=== PATIENT | female | born 1985 | race African-American/Black ===

== ENCOUNTER 2023-01-06 11:01 | Emergency (ER) | payer OTHER, SELFPAY ==
--- NOTE | ~2023-01-06 | US_ITS ---
EXAMINATION: Ultrasound OB Limited CLINICAL INFORMATION: Patient 19 weeks . Vaginal bleeding. COMPARISON: None. TECHNIQUE: Transabdominal Limited OB ultrasound FINDINGS: There is a single viable intrauterine fetus in breech position. heart rate is 153 bpm. movement is seen. measurements: Head circumference 11.2 cm suggesting gestational age 15 weeks 3 days, femur length 1.8 cm suggesting gestational age 15 weeks 2 days, abdominal circumference 9.9 cm suggesting gestational age 16 weeks 0 days. From today's measurements gestational age would be estimated at 15 weeks 4 days. There is anterior fundal placenta. Cervix not well visualized. Maternal pelvis not well visualized. US/US OB limited IMPRESSION: Single viable intrauterine fetus. From today's measurements gestational age is estimated at 15 weeks 4 days. Anterior fundal placenta.
--- NOTE | 2023-01-06 11:23 | ED_ITS ---
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 Patient is approximately 5 months . She is receiving her care [facility]. She is on a vitamin. She has had spotting over the last couple of weeks. Today, she developed sharp lower pelvic pain associated with a gush of blood. She has had no fevers or chills. No nausea vomiting. She is concerned she is having a miscarriage. She describes her pain as ijbt-rr-ruvessig nature. There is no clear relieving or exacerbating feature s. The pain does not radiate. There is no diarrhea or constipation. Related Data Allergies Allergy/AdvReac Type Severity Reaction Status Date / Time caramel Allergy Unknown Verified 01/06/23 11:27 carrot Allergy Unknown Verified 01/06/23 11:27 codeine Allergy Unknown Verified 01/06/23 11:27 [facility] Social History Social History Advance Directives: No Advance Directives Information Provided: Yes Physical Exam ED Vital Signs: Vital Signs - 24 hr 01/06/23 11:24 Temperature 98.8 F Pulse Rate 105 H Respiratory Rate 22 H Blood Pressure 142/86 H Pulse Oximetry 97 Oxygen Delivery Method Room Air BMI result Body Mass Index 36.5 GEN: Well developed, no acute distress, alert, oriented HEENT: Normocephalic, atraumatic, normal external ears, nose appears normal, no oropharyngeal edema or exudates Eyes: Normal to appearance Neck: Supple, no lymphadenopathy Respiratory: Talks in complete sentences, no respiratory distress, clear to auscultation bilaterally Cardiovascular: Regular rate and rhythm, no murmurs rubs or gallops Abdomen: Gravid abdomen, no tenderness, rebound or guarding Back: No CVA tenderness Extremities: No clubbing cyanosis or edema Neurologic: No focal neurologic deficits, cranial nerves 2-12 intact, strength is 5/5 bilaterally Skin: No rash Course Course Course Narrative: This is a rapid medical exam. Deferred additional HPI, ROS, PE to primary provider. 37 yo female with history of HTN here with vaginal bleeding since last evening, lower abdominal pain, back pain. Patient is currently 5 months (19 weeks). Recently moved here and just established a OB at [facility]. Has had US to confirm IUP. [id number] Will need labs, UA, US, FHR VSS unable to get FHR in triage. Called and spoke to charge nurse (Jeni). Aware patient needs immediate bedding d/t concern for being unable to obtain FHR Reevaluation(s) Reevaluation #1: Patient apparently left the emergency department following OB ultrasound. Per review of the official ultrasound, no report available as of yet, heart rate was noted, positive movements were noted. Placenta was noted to be fundal. We have attempted to contact the patient to return for full report. She is Rh positive and does not require RhoGAM. Time: 14:11 Medical Decision Making Medical Decision Making [facility] Narrative: 37-year-old female presents with sharp abdominal/pelvic pain, vaginal bleeding. She has had 2 miscarriages in the past. Abdomen is soft and nontender. Ultrasound revealed movements as well as a heart rate of approximately 164 beats per minute. Differential diagnosis could include placenta previa, placental abruption, subchorionic hemorrhage. She does have care at [facility]. Will obtain a 2nd trimester ultrasound. Will contact OBGYN following workup. Differential Diagnosis Differential Diagnoses: The differential diagnosis associated with the presentation includes (See above) Admission/Observation Consideration of admission/observation: Escalation of care including admission/observation considered Consult Healthcare Provider Management of the patient was discussed with: Managing Jeweler (OBGYN) Lab Data [facility] Lab Attestation statement: I reviewed the patient's lab results. 01/06/23 11:40 01/06/23 11:40 Labs: Lab Results 01/06/23 01/06/23 01/06/23 Range/Units 11:40 11:40 12:57 WBC 9.3 (4.8-10.8) X10*3/uL RBC 4.12 L (4.20-5.50) X10*6/uL Hgb 11.8 L (12.0-16.0) g/dl Hct 34.8 L (37.0-47.0) % MCV 84.5 (80.0-98.0) fL MCH 28.6 (27.0-33.0) pg MCHC 33.9 (31.0-35.0) g/dl RDW 13.2 (11.0-16.0) % Plt Count 301 (160-400) X10*3/uL MPV 9.3 L (9.4-12.3) fL Immature Gran % (Auto) 1.0 H (0.0-0.4) % Neut % (Auto) 57.6 (45-73) % Lymph % (Auto) 30.3 (20-40) % [place] % (Auto) 7.7 (2-11) % Eos % (Auto) 2.9 (0-4) % Baso % (Auto) 0.5 (0-2) % Lymph # (Auto) 2.8 (1.2-4.9) X10*3/uL [place] # (Auto) 0.7 (0.1-1.2) X10*3/uL Eos # (Auto) 0.3 (0.0-0.4) X10*3/uL Baso # (Auto) 0.1 (0.0-0.2) X10*3/uL Abs Immat Gran (auto) 0.09 H (0.00-0.03) X10*3/uL Absolute Neuts (auto) 5.3 (2.0-8.3) x10*3/uL Absolute Nucleated RBC 0.000 (0.0-0.012) X10*3/uL Nucleated RBC % (auto) 0.0 (0.0-0.2) /100WBC Sodium 136 (135-145) mmol/L Potassium 3.9 (3.3-5.1) mmol/L Chloride 106 (96-108) mmol/L Carbon Dioxide 20 L (22-29) mmol/L Anion Gap 14 (12-20) BUN 9 (9-16) mg/dL Creatinine 0.66 (0.5-1.4) mg/dL Estim Creat Clear Calc 153.8 Estimated GFR > 60 Random Glucose 96 (60-115) mg/dL Calcium 9.4 (8.4-10.2) mg/dL Total Bilirubin 0.9 (0.0-1.0) mg/dL Direct Bilirubin 0.2 (0.0-0.5) mg/dL AST 22 (5-31) U/L ALT 23 (0-31) U/L Alkaline Phosphatase 41 (39-117) U/L Total Protein 7.4 (6.5-8.0) g/dL Albumin 4.0 (3.5-5.0) g/dL Beta HCG, Quant 06349 mIU/mL Blood Type B Positive Independent Interpretation I performed an independent interpretation of an: Ultrasound Radiology Impression Discussion of test interpretation with radiology: I have reviewed the radiologist's reading. ( US/US OB limited IMPRESSION: Single viable intrauterine fetus. From today's measurements gestational age is estimated at 15 weeks 4 days. Anterior fundal placenta. Dictated By:Marjorie Villalobosigned By:<Electronically signed by Marjorie Leyva MD in OV>01/06/23 1242) Prescription Management I considered prescription management with: Pain Medication Discharge Plan Discharge Clinical Impression: Threatened Patient Disposition: Elopement Interventions: ED Discharge Assessment Last Done: 01/06/23 13:52 Discharge Date/Time: 01/06/23 13:52
[2023-01-06 11:24] VITALS: BP 142/86; PULSE 105; RESP 22; TEMP 37.1; O2SAT 97; BMI 36.5
[2023-01-06 11:46] LABS: MANUAL DIFF FLAG NO
[2023-01-06 11:48] LABS: Basophils Absolute Auto 0.1 X10*3/uL (0.0-0.2); Basophils Percent Auto 0.5 % (0-2); Eosinophils Absolute Auto 0.3 X10*3/uL (0.0-0.4); Eosinophils Percent Auto 2.9 % (0-4); Hematocrit 34.8 % (37.0-47.0); Hemoglobin 11.8 g/dl (12.0-16.0); Imm Gran Abs Auto 0.09 X10*3/uL (0.00-0.03); Lymphocytes Absolute Auto 2.8 X10*3/uL (1.2-4.9); Lymphocytes Percent Auto 30.3 % (20-40); Mean Corpuscular HGB Conc 33.9 g/dl (31.0-35.0); Mean Corpuscular Hemoglobin 28.6 pg (27.0-33.0); Mean Corpuscular Volume 84.5 fL (80.0-98.0); Mean Platelet Volume 9.3 fL (9.4-12.3); Monocytes Absolute Auto 0.7 X10*3/uL (0.1-1.2); Monocytes Percent Auto 7.7 % (2-11); Neutrophils Absolute Auto 5.3 x10*3/uL (2.0-8.3); Neutrophils Percent Auto 57.6 % (45-73); Platelet Count 301 X10*3/uL (160-400); Red Blood Count 4.12 X10*6/uL (4.20-5.50); Red Cell Distribution Width 13.2 % (11.0-16.0); White Blood Count 9.3 X10*3/uL (4.8-10.8)
--- NOTE | 2023-01-06 12:00 | PC.NURSE ---
Hr 164 on us by md. + movement.
[2023-01-06 12:08] LABS: Alanine Aminotransferase 23 U/L (0-31); Alkaline Phosphatase 41 U/L (39-117); Anion Gap 14 (12-20); Aspartate Amino Transferase 22 U/L (5-31); Bilirubin Direct 0.2 mg/dL (0.0-0.5); Bilirubin Total 0.9 mg/dL (0.0-1.0); Blood Urea Nitrogen 9 mg/dL (9-16); Calcium 9.4 mg/dL (8.4-10.2); Carbon Dioxide 20 mmol/L (22-29); Chloride 106 mmol/L (96-108); Creatinine Clr Calc Pharmacy 153.8; Estimated Glomerular Filt Rate > 60; Glucose Random 96 mg/dL (60-115); Potassium 3.9 mmol/L (3.3-5.1); Sodium 136 mmol/L (135-145); Total Protein 7.4 g/dL (6.5-8.0)
[2023-01-06 12:37] LABS: HCG Quantitative 21261 mIU/mL
== END 2023-01-06 13:52 | disposition left against medical advice (07) ==
PROVIDERS: Nurse Practitioner Family; Emergency Provider Emergency Medicine
DX: O20.0 Threatened abortion (principal); Z3A.15 15 weeks gestation of pregnancy
CPT/HCPCS: 36415; 76815; 80048; 80076; 84702; 85025; 86900; 86901; 99284

== ENCOUNTER 2023-05-19 09:31 | Emergency (ER) | payer OTHER, SELFPAY ==
[2023-05-19 10:21] LABS: IDNOW Serial# 6674DD1D; Strep A Nucleic Acid Positive (Negative)
--- NOTE | 2023-05-19 10:37 | ED.GENADULT ---
HPI - General Adult General Chief complaint: Upper Respiratory Symptoms Stated complaint: Fever/Cough Time Seen by Provider: 05/19/23 10:33 Source: patient Mode of arrival: ambulatory Limitations: no limitations History of Present Illness HPI narrative: Patient is a 38 year old assigned female at with no reported medical history presenting to the emergency department today with a cough and feeling generally unwell. Patient states that over the last week she has had a cough and felt generally unwell. Patient denies any dizziness, lightheadedness, abdominal pain, nausea, vomiting, fever, chills, blurry vision, double vision, loss of vision, chest pain, difficulty breathing, shortness of breath, back pain, night sweats, pain with urination, increased urinary frequency, increased urinary urgency, blood in her urine or stool, syncope or a near syncopal episode, recent trauma or falls, bowel incontinence, bladder incontinence, bowel retention, bladder retention, or any other complaints at this time. Onset (ago): week(s) (1) Severity: mild Severity scale (1-10): 3 Relieving factors: none Exacerbating factors: none Associated symptoms: cough Treatments prior to arrival: none Related Data Previous Rx's Medication Instructions Recorded penicillin V potassium 500 mg 500 mg PO BID 10 days #20 tabs 05/19/23 tablet Allergies Allergy/AdvReac Type Severity Reaction Status Date / Time caramel Allergy Unknown Verified 01/06/23 11:27 carrot Allergy Unknown Verified 01/06/23 11:27 codeine Allergy Unknown Verified 01/06/23 11:27 Review of Systems Constitutional: Constitutional: Reports no additional constitutional complaints, Denies chills, Denies fever(s) and Denies night sweats Eyes: Eyes: Reports no additional eye complaints, Denies blurry vision, Denies change in vision, Denies diplopia, Denies eye discharge, Denies loss of vision and Denies eye pain ENT: Denies dizziness Cardiovascular: Cardiovascular: Reports no additional cardiovascular complaints, Denies chest pain, Denies lightheadedness, Denies Loss of Consciousness and Denies dyspnea Respiratory: Respiratory: Reports no additional respiratory complaints, Reports cough and Denies dyspnea Gastrointestinal: Gastrointestinal: Reports no additional gastrointestinal complaints, Denies abdominal pain, Denies melena, Denies hematochezia, Denies change in bowel habits and Denies change in stool character Genitourinary: Genitourinary: Denies hematuria, Denies urinary frequency, Denies dysuria, Denies urinary incontinence, Denies urinary hesitancy and Denies urinary urgency Musculoskeletal: Musculoskeletal: Reports no additional musculoskeletal complaints, Denies numbness and Denies tingling Neurologic: Denies dizziness, Denies loss of vision, Denies numbness and Denies tingling Psychiatric: Psychiatric: Reports no additional psychiatric complaints Endocrine: Endocrine: Reports no additional endocrine complaints Hematologic/Lymphatic: Hematologic/Lymphatic: Reports no additional hematologic/lymphatic complaints Allergic/Immunologic: Allergic/Immunologic: Reports no additional allergic/immunologic complaints [facility] Past Medical History Attestation statement: The following information was validated with the patient. Source: old records reviewed and nursing notes reviewed Social History Social History Advance Directives: No Physical Exam ED Vital Signs: Vital Signs - 24 hr 05/19/23 11:30 Temperature 96.9 F Pulse Rate 100 Respiratory Rate 16 Blood Pressure 138/63 Pulse Oximetry 97 Oxygen Delivery Method Room Air BMI result Body Mass Index 40.1 Const General: cooperative, no acute distress, alert and awake Nutritional Appearance: well nourished Orientation/consciousness: patient oriented x3 Limitations: no limitations HENMT Head: Yes normal to inspection and Yes atraumatic Ears: hearing grossly normal bilaterally and external ears normal General nose exam: Normal external nose present, no nasal discharge noted and no epistaxis Face and sinus: Yes normal facial exam, No abrasion and No laceration Mouth: Normal oral and palatal mucosa present, no drooling and no muffled voice Throat: Yes abnormal tonsil (bilateral erythema with exudates) Eyes General: appearance normal, both eyes and all related structures Periorbital: periorbital findings normal Eyelids: Yes eyelids normal Conjunctivae: conjunctivae normal Pupils: Equal, round and reactive pupils present EOM: EOMs intact bilaterally Neck Neck: Yes normal visual inspection, Yes full ROM and Yes no lymphadenopathy Chest Chest palpation & inspection: normal inspection of the chest Resp Effort & Inspection: normal respiratory effort and able to speak in complete sentences Auscultation: clear to auscultation bilaterally Cardio Rate: regular rate Rhythm: regular rhythm GI Inspection: Yes normal to inspection Neuro General: patient oriented x3 and moves all extremities Cranial nerves: Yes Equal, round and reactive pupils present Cognition (Neuro): normal cognition Motor exam (neuro): 5/5 motor strength present throughout Sensory Exam: Normal double simultaneous stimulation for sensation Coordination: [id number] test normal Extrem General: Yes normal to inspection, Yes full ROM and Yes capillary refill normal Psych Appearance: grossly normal Mental Status: mental status grossly normal Affect: normal affect Attitude: cooperative Thought process: Normal thought process present Thought content: Normal thought content present Insight: Good insight present (Psych) Medical Decision Making Medical Decision Making [facility] Narrative: Patient is a 38 year old assigned female at with no reported medical history presenting to the emergency department today with a cough and feeling generally unwell. Patient's physical exam was as noted in the physical exam portion of this note. Patient's COVID/RSV/Influenza swab was positive for RSV. Patient's strep swab was positive. I explained my physical exam findings as well as all test results to the patient. I answered all questions asked by the patient. I stressed the importance of the patient taking her medication as prescribed. I stressed the importance of the patient following up with her primary care provider. I stressed the importance of the patient returning to the emergency department immediately if her symptoms were to worsen or if she were to develop any dizziness, shortness of breath, difficulty breathing, chest pain, blurry vision, loss of vision, nausea, vomiting, abdominal pain, fever, chills, back pain, or any other complaints. Patient verbalized agreement and understanding with this treatment plan and discharge. Differential Diagnosis Differential Diagnoses: The differential diagnosis associated with the presentation includes COVID-19 Influenza RSV Strep pharyngitis Lab Data [facility] Lab Attestation statement: I reviewed the patient's lab results. My interpretation of these results are in the [facility] rationale portion of this note. Labs: Lab Results 05/19/23 Range/Units 10:04 Influenza Type A (PCR) NEGATIVE (Negative) Influenza Type B (PCR) NEGATIVE (Negative) RSV RNA Qual (PCR) POSITIVE A (Negative) SARS-CoV-2 RNA (RT-PCR) NEGATIVE (Negative) S. pyogenes GrpA PAOLO Positive A (Negative) Prescription Management I considered prescription management with: Antibiotic (patient prescribed an antibiotic for strep pharyngitis) Discharge Plan Discharge Clinical Impression: Strep pharyngitis, RSV (respiratory syncytial virus infection) Patient Disposition: Home, Self-Care Instructions: Strep Throat (DC), Respiratory Syncytial Virus (ED) Additional Instructions: Follow up with your primary care provider. Return to the emergency department immediately if your symptoms worsen or if you develop any dizziness, shortness of breath, difficulty breathing, chest pain, blurry vision, loss of vision, nausea, vomiting, abdominal pain, fever, chills, back pain, or any other complaints. Prescriptions: New penicillin V potassium 500 mg tablet 500 mg PO BID 10 Days Qty: 20 0RF Referrals: [facility] [place] Family Medicine [Provider Group] (Call to establish and follow up with a primary care provider. If you already have a primary care provider, please follow up with them.) [facility] Primary Care, [place] [Provider Group] (Call to establish and follow up with a primary care provider. If you already have a primary care provider, please follow up with them.) [facility] (Call to establish and follow up with a primary care provider. If you already have a primary care provider, please follow up with them.) [facility] [Physician] - (Call to establish and follow up with a primary care provider. If you already have a primary care provider, please follow up with them.) Stand Alone Forms: Work/School Release Interventions: ED Discharge Assessment Last Done: 05/19/23 11:47 Discharge Date/Time: 05/19/23 11:47 Print Language: Swedish
[2023-05-19 10:57] LABS: Influenza A PCR NEGATIVE (Negative); Influenza B PCR NEGATIVE (Negative); Resp Syncy Virus RNA Qual PCR POSITIVE (Negative); SARS COV2 PCR INHOUSE NEGATIVE (Negative)
[2023-05-19 11:30] VITALS: BP 138/63; PULSE 100; RESP 16; TEMP 36.1; O2SAT 97; BMI 40.1
== END 2023-05-19 11:47 | disposition home or self-care (01) ==
PROVIDERS: Physician Assistant Medical; Emergency Provider Emergency Medicine
DX: J02.0 Streptococcal pharyngitis (principal); R05.9 Cough, unspecified; R50.9 Fever, unspecified; Z20.822 Contact with and (suspected) exposure to COVID-19; Z20.828 Contact with and (suspected) exposure to other viral communicable diseases; Z79.899 Other long term (current) drug therapy
CPT/HCPCS: 0241U; 87651; 99283

== ENCOUNTER 2023-12-03 09:11 | Emergency (ER) | payer OTHER, SELFPAY ==
[2023-12-03 09:23] VITALS: BP 156/92; PULSE 110; RESP 20; TEMP 37.7; O2SAT 97; BMI 37.2
[2023-12-03 10:08] LABS: IDNOW Serial# 08D9AD1C; Strep A Nucleic Acid Negative (Negative)
[2023-12-03 10:44] LABS: Influenza A PCR NEGATIVE (Negative); Influenza B PCR POSITIVE (Negative); Resp Syncy Virus RNA Qual PCR NEGATIVE (Negative); SARS COV2 PCR INHOUSE NEGATIVE (Negative)
--- NOTE | 2023-12-03 11:18 | ED_ITS ---
HPI - General Adult General Chief complaint: Fever Stated complaint: fever, vomiting Time Seen by Provider: 12/03/23 11:08 Source: patient, RN notes reviewed and old records reviewed Mode of arrival: ambulatory Limitations: no limitations History of Present Illness HPI narrative: 38 year old female with no significant pmhx presents to the ED for evaluation of subjective fevers, body aches, dry cough, and posttussive emesis that began this morning. One of her children at home has strep throat and the other two are ill with similar symptoms. No other sick contacts. Denies sore throat, ear pain, chest pain, sob, palpitations, abdominal pain, flank pain, dysuria, or hematuria. Related Data Previous Rx's ?Medication ?Instructions ?Recorded penicillin V potassium 500 mg 500 mg PO BID 10 days #20 tabs 05/19/23 tablet ibuprofen 200 mg capsule (Motrin 600 mg (3 x 200 mg) PO Q4-6H PRN 12/03/23 IB) fever or pain #30 caps oseltamivir 75 mg capsule (Tamiflu) 75 mg PO BID 5 days #10 caps 12/03/23 Allergies Allergy/AdvReac Type Severity Reaction Status Date / Time caramel Allergy Unknown Verified 12/03/23 09:25 carrot Allergy Unknown Verified 12/03/23 09:25 codeine Allergy Unknown Verified 12/03/23 09:25 Review of Systems Review of Systems: Constitutional: No fever, chills, fatigue, night sweats, weight changes ENT/Mouth: No ear pain, hearing loss, nasal congestion, sinus pain, rhinorrhea, sore throat Eyes: No eye pain, swelling, redness, vision changes, discharge Cardio: No chest pain, palpitations, GUNTER, orthopnea, peripheral edema Pulm: No SOB, sputum, wheezing, dyspnea, hemoptysis, +cough GI: No nausea, vomiting, hematemesis, abdominal pain, diarrhea, constipation, hematochezia, melena : No irregular bleeding, dysuria, frequency, urgency, hesitancy, hematuria, flank pain, urinary flow changes, urinary incontinence or retention MSK: No back pain, neck pain, joint pain, +myalgias Skin: No lesions, rashes Neuro: No weakness, numbness, paresthesias, LOC, dizziness, headache Psych: No anxiety/panic, depression, SI/HI, AH/VH All other systems reviewed and are negative. [facility] Past Medical History Attestation statement: The following information was validated with the patient. Source: old records reviewed and nursing notes reviewed Social History Social History Advance Directives: No Advance Directives Information Provided: No Physical Exam ED Vital Signs: Vital Signs - 24 hr 12/03/23 09:23 Temperature 99.9 F Pulse Rate 110 H Respiratory Rate 20 Blood Pressure 156/92 H Pulse Oximetry 97 Oxygen Delivery Method Room Air BMI result Body Mass Index 37.2 Patient hypertensive, tachy Const General: cooperative, healthy appearing, comfortable and no acute distress Nutritional Appearance: obese Orientation/consciousness: patient oriented x3 Limitations: no limitations HENMT Head: Yes normal to inspection, Yes No palpable skull fracture present, Yes normocephalic and Yes atraumatic Ears: hearing grossly normal bilaterally, external ears normal, TM's normal bilaterally, EAC's normal, mastoids normal and no periauricular adenopathy Eyes General: appearance normal, both eyes and all related structures Conjunctivae: conjunctivae normal Sclerae: sclerae normal Pupils: Equal, round and reactive pupils present Neck Neck: Yes normal visual inspection, Yes full ROM, Yes no lymphadenopathy and Yes no meningeal signs Resp Effort & Inspection: normal respiratory effort and able to speak in complete sentences Auscultation: clear to auscultation bilaterally Cardio Rate: regular rate Rhythm: regular rhythm GI Inspection: Yes normal to inspection and Yes obesity Palpation (GI): Soft to palpation and nontender General: Yes no CVA tenderness Back/Spine/Pelvis Back: no CVA tenderness Skin General skin exam: no rashes or lesions noted Neuro General: patient oriented x3 and no meningeal signs Cranial nerves: Yes Equal, round and reactive pupils present Extrem General: Yes normal to inspection, Yes capillary refill normal and Yes no calf tenderness Course Course Course Narrative: 1118-- Patient has tested positive for influenza b. after discussed, tamiflu s ent to pharmacy for treatment. Patient has remained stable throughout ED visit today however is refusing repeat vitals on discharge. Discussed worrisome signs and symptoms and when to return to the ED. All questions answered at this time. Patient is agreeable with disposition and stable for discharge. Medical Decision Making Medical Decision Making [facility] Narrative: 38 year old female with no significant pmhx presents to the ED for evaluation of subjective fevers, body aches, dry cough, and posttussive emesis that began this morning. patient hypertensive and tachy. low grade fever of 99.9F > refusing repeat vitals. she is nontoxic appearing and in NAD. no rashes. lungs are cta b/l. rrr. abd obese, nd/nt, no rebound or guarding, normoactive bs x4. no calf tenderness b/l. Differential diagnosis includes viral syndrome, bronchitis, gastroenteritis. lower suspicion for strep throat, mono, sales representative trainee, retropharyngeal abscess, pneumonia, dvt. plan for viral swabs and re-evaluation. Differential Diagnosis Differential Diagnoses: The differential diagnosis associated with the presentation includes as above. Admission/Observation not indicated Lab Data [facility] Lab Attestation statement: I reviewed the patient's lab results. as above. Labs: Lab Results 12/03/23 Range/Units 09:43 Influenza Type A (PCR) NEGATIVE (Negative) Influenza Type B (PCR) POSITIVE A (Negative) RSV RNA Qual (PCR) NEGATIVE (Negative) SARS-CoV-2 RNA (RT-PCR) NEGATIVE (Negative) S. pyogenes GrpA PAOLO Negative (Negative) External Record Review External record reviewed: Inpatient record Prescription Management I considered prescription management with: Pain Medication and Antiviral (tamiflu) Social Determinants Patient?s care significantly limited by Social Determinants of Health including: Low income and Other Social Determinant of Health Critical Care Time Critical Care Time Critical Care Time: No Discharge Plan Discharge Clinical Impression: Influenza B Patient Disposition: Elopement Instructions: Influenza (ED), Flu Shot (Vaccine) for Adults (ED), Droplet Precautions (ED) Additional Instructions: You tested negative for strep throat, covid and rsv. You tested positive for the flu. After discussion, tamiflu has been sent to your pharmacy for you to take over the next 5 days. You may take [id number] cough medicine such is Robitussin. Alter ibuprofen and Tylenol for fevers and body aches. You may also purchase [id number] Chloraseptic spray tp spray at the back of the throat for throat pain. Follow-up with PCP. If symptoms persist or worsen please return to the emergency department. The case of an emergency call 911. Prescriptions: New oseltamivir [Tamiflu] 75 mg capsule 75 mg PO BID 5 Days Qty: 10 0RF ibuprofen [Motrin IB] 200 mg capsule 600 mg PO Q4-6H PRN (Reason: fever or pain) Qty: 30 0RF No Action penicillin V potassium 500 mg tablet 500 mg PO BID 10 Days Qty: 20 0RF Discharge Date/Time: 12/03/23 11:45 Print Language: Greenlandic
--- NOTE | 2023-12-03 11:43 | PC.NURSE ---
Pt eval by ALONDRA in triage, Influenza B+, cleared for dc with scripts, pt refused VS, refused meds for self and children, left without discharged paperwork.
== END 2023-12-03 11:45 | disposition left against medical advice (07) ==
PROVIDERS: Emergency Provider Emergency Medicine
DX: J10.1 Influenza due to other identified influenza virus with other respiratory manifestations (principal); R50.9 Fever, unspecified; M79.10 Myalgia, unspecified site; R05.9 Cough, unspecified; R11.2 Nausea with vomiting, unspecified; Z11.52 Encounter for screening for COVID-19; Z20.822 Contact with and (suspected) exposure to COVID-19
CPT/HCPCS: 0241U; 87651; 99282; 99283

== ENCOUNTER 2023-12-05 18:46 | Emergency (ER) | payer OTHER, SELFPAY ==
[2023-12-05 19:00] VITALS: BP 141/93; PULSE 120; RESP 18; TEMP 36.8; O2SAT 99; BMI 37.2
--- NOTE | 2023-12-05 19:00 | ED_ITS ---
HPI - General Adult General Chief complaint: Urogenital-Female Stated complaint: back pain, high blood pressure, vision disturbance Time Seen by Provider: 12/05/23 20:50 Source: patient Mode of arrival: ambulatory Limitations: no limitations History of Present Illness HPI narrative: 38-year-old female with a history of hypertension who presents emergency department for evaluation of fever, chills, nonproductive cough, nausea, vomiting and right lower back pain. Patient states she got sick 5 days prior. She was seen here in the emergency department on 12/03/2023 and diagnosed with influenza B. She was started on Tamiflu, Tylenol and ibuprofen. She states she continues to have a nonproductive cough. She now has developed right lower back pain. She states the pain is a constant, sharp pain which is worse with movement. She denied chest pain, shortness of breath or dyspnea on exertion. She states she has been taking Tylenol and ibuprofen but despite taking these medication she still having 10/10 pain. She states she occasionally gets a change in her vision especially when the pain is severe. She states that her vision is ?flickering ?with occasional white flex crossing her vision. Related Data Previous Rx's ?Medication ?Instructions ?Recorded penicillin V potassium 500 mg 500 mg PO BID 10 days #20 tabs 05/19/23 tablet ibuprofen 200 mg capsule (Motrin 600 mg (3 x 200 mg) PO Q4-6H PRN 12/03/23 IB) fever or pain #30 caps oseltamivir 75 mg capsule (Tamiflu) 75 mg PO BID 5 days #10 caps 12/03/23 acetaminophen 500 mg tablet 500 mg PO Q6H PRN fever or pain 12/05/23 (Tylenol Extra Strength) #30 tabs ibuprofen 400 mg tablet 400 mg PO TID PRN fever or pain 12/05/23 #30 tabs oxycodone 5 mg tablet 5 mg PO Q6H PRN pain #10 tabs 12/05/23 Allergies Allergy/AdvReac Type Severity Reaction Status Date / Time caramel Allergy Unknown Verified 12/05/23 19:03 carrot Allergy Unknown Verified 12/05/23 19:03 codeine Allergy Unknown Verified 12/05/23 19:03 Review of Systems Review of Systems: Yes all other systems are reviewed and are negative PMFSH Past Medical History PMFSH Narrative: Social history: The patient states she is living in a usp with her 3 children. She does smoke cigarettes. She denies alcohol use. She does smoke marijuana. Social History Social History Advance Directives: No Advance Directives Information Provided: No Physical Exam ED Vital Signs: Vital Signs - 24 hr 12/05/23 19:00 Temperature 98.2 F Pulse Rate 120 H Respiratory Rate 18 Blood Pressure 141/93 H Pulse Oximetry 99 Oxygen Delivery Method Room Air BMI result Body Mass Index 37.2 Vital signs revealed an elevated blood pressure of 141/93 and an elevated heart rate of 120. Exam: General: Awake, alert in no distress, elevated BMI of 37.3 with a weight of 111 kg Head: Normocephalic, atraumatic EENT: PERRL, Lids normal, sclera normal, conjunctiva normal, nose normal , ears normal, throat without erythema or exudates Neck: Supple, no adenopathy Lung: breath sounds symmetric, no wheezing, rales or rhonchi Chest: symmetric movement, nontender Heart: regular rate and rhythm, normal S1, S2 no murmurs or rubs Abdomen: soft, non-tender, nondistended, normal bowel sounds Back: Patient has no vertebral tenderness but does have significant tenderness palpation of the paraspinal muscles in the lumbar sacral area, there has no spasm these muscles. When the patient stands and tries to been 4 she has increa sed pain on her right side. Extremities: no deformities, moves all extremities symmetrically Neuro: Awake, alert, oriented, normal speech, cranial nerves intact, moves all extremities symmetrically Psych: Pleasant, cooperative Course Course Course Narrative: This is an RME: Additional HPI, ROS, PE not included below will be deferred to primary provider. 38 yo f presents with right sided back pain for one day. Reports dark urine and frequency. Reports flickering spots in vision. Also concerned with high blood pressure readings at home. Medical Decision Making Medical Decision Making MDM Narrative: 38-year-old female with a history of hypertension who presents emergency department for evaluation of 5 days of viral illness, she tested positive for influenza B on 12/03/2023. The patient continues to have fever , chills, nausea, vomiting and a nonproductive cough. She states she has developed right lower back pain over the last several days which is not relieved by Tylenol and ibuprofen. Vital signs did reveal an elevated blood pressure and elevated heart rate. Physical examination did reveal significant tenderness palpation of her paraspinal muscles in the lumbar sacral area which are worse with movement and with bending. Differential diagnosis: ?Includes but is not limited to pneumonia, pyelonephritis, urinary tract infection, pulmonary embolism, musculoskeletal strain/sprain Following evaluation was ordered: Urinalysis Patient was initially treated with the following: Toradol 60 mg IM Course: 22:12 My interpretation patient's laboratory evaluation as follows: Urinalysis was negative. Patient did have a positive influenza B on 12/03/2023. Patient does have significant tenderness palpation of her right lumbar sacral paraspinal muscles, this is worse with movement with bending. At this time I suspect the patient has musculoskeletal strain possibly secondary to her cough. Patient's elevated heart rate and elevated blood pressure most likely related to her pain. Patient was treated with Toradol 60 mg IM. She was given prescriptions for Tylenol and ibuprofen and for pain not relieved by these medications she was prescribed oxycodone. She was given printed and verbal instructions discharged home. Admission/Observation Consideration of admission/observation: Escalation of care including admission/observation considered Lab Data MDM Lab Attestation statement: I reviewed the patient's lab results. Labs: Lab Results 12/05/23 Range/Units 20:37 Urine Color Yellow Urine Appearance Hazy Urine pH 5.0 (5.0-9.0) Ur Specific [place] 1.015 (1.005-1.025) Urine Protein Trace (Neg-Trace) mg/dL Urine Glucose (UA) Negative (Negative) mg/dL Urine Ketones Negative (Negative) mg/dL Urine Blood Negative (Negative) Urine Nitrite Negative (Negative) Ur Leukocyte Esterase Negative (Negative) External Record Review External record reviewed: Other ([place] patient prescription monitoring program-no opiates prescribed over the search range) Discharge Plan Discharge Clinical Impression: Left lumbar pain, Influenza B Patient Disposition: Home, Self-Care Instructions: Acute Low Back Pain (ED) Additional Instructions: Your urine test was negative, I do not think that your back pain is due to a urine infection at this time. On your exam you are very tender when I pushed on your lower back muscles suggesting that your pain is caused by a back sprain or strain. Take [id number] pills, 1 pills every 6 hours as needed for pain. Take Tylenol (acetaminophen) 500 mg pills, 2 pills every 6 hours as needed for pain. For pain not relieved by ibuprofen or Tylenol take oxycodone 5 mg pills, 1 pill every 4 hours as needed for pain. Do not drive or work while taking this medication since they can cause sleepiness. Oxycodone is a narcotic medication that can be addicting. If you are concerned about addiction you can ask the pharmacist for less pills or do not get this prescription filled. Follow-up with your doctor in 2 days. Please return to the emergency department if your symptoms get worse or if you develop any symptoms that are concerning to you. Prescriptions: New acetaminophen [Tylenol Extra Strength] 500 mg tablet 500 mg PO Q6H PRN (Reason: fever or pain) Qty: 30 0RF ibuprofen 400 mg tablet 400 mg PO TID PRN (Reason: fever or pain) Qty: 30 0RF oxycodone 5 mg tablet 5 mg PO Q6H PRN (Reason: pain) Qty: 10 0RF Rx Instructions: Patient may request partial refill; Partial Fill upon patient request. No Action oseltamivir [Tamiflu] 75 mg capsule 75 mg PO BID 5 Days Qty: 10 0RF ibuprofen [Motrin IB] 200 mg capsule 600 mg PO Q4-6H PRN (Reason: fever or pain) Qty: 30 0RF penicillin V potassium 500 mg tablet 500 mg PO BID 10 Days Qty: 20 0RF Print Language: Indonesian
[2023-12-05 20:45] LABS: Color Urine Yellow; Glucose Urine UA Negative (Negative); Leukocyte Esterase Urine Negative (Negative); Nitrite Urine Negative (Negative); Specific Gravity - Urine 1.015 (1.005-1.025); Urine Blood Negative (Negative); Urine Ketones Negative (Negative); Urine Protein Trace mg/dL (Neg-Trace)
[2023-12-05 20:50] LABS: Appearance Urine Hazy
[2023-12-05] MEDS: Ketorolac Tromethamine 60 MG/2 ML VIAL IM (22:16)
[2023-12-05 22:30] VITALS: BP 145/99; PULSE 100; RESP 16; TEMP 37.7; O2SAT 99
== END 2023-12-05 22:32 | disposition home or self-care (01) ==
PROVIDERS: Physician Assistant; Emergency Provider Emergency Medicine Emergency Medical Services
DX: J10.1 Influenza due to other identified influenza virus with other respiratory manifestations (principal); M54.50 Low back pain, unspecified; I10 Essential (primary) hypertension
CPT/HCPCS: 81003; 96372; 99283; 99284; J1885

== ENCOUNTER 2025-07-01 15:36 | Emergency (ER) | payer OTHER, SELFPAY ==
--- NOTE | 2025-07-01 16:26 | ED_ITS ---
HPI - General Adult General Chief complaint: General Medical Stated complaint: sore throat, back pain, ?preg Time Seen by Provider: 07/01/25 17:11 Source: patient Mode of arrival: ambulatory Limitations: no limitations History of Present Illness ED Provider: Jennifer Hanna PA-C HPI narrative: The patient is a female who presents with two days of severe sore throat and odynophagia. She reports associated upset stomach and inability to eat or comfortably swallow liquids; attempts at swallowing sometimes cause fluid to ?come out of my nose.? She notes white patches visualized in the back of her throat. Tylenol taken at home provided no relief. She denies fever, vomiting, diarrhea, dysuria, vaginal pain or bleeding, genital pruritus, rash, falls, or trauma. She also reports intermittent lower back pain radiating down her leg and toward her abdomen that began around the same time; pain is unchanged by position or movement. No recent sick contacts and no recent antibiotic use. History of strep throat and influenza approximately one year ago. She is certain of her last menstrual period but has not yet established care; was first discovered after recent STD/HIV screening at [facility] 2 weeks ago. Reports suprapubic discomfort. ? Constitutional: Denies fever. ? HEENT: Positive for sore throat, odynophagia; difficulty swallowing liquids; white patches seen in throat. Denies recent sick contacts. ? GI: Upset stomach; denies vomiting or diarrhea. ? : Denies dysuria, vaginal pain, bleeding, or genital pruritus. ? MSK: Reports lower back pain radiating to leg and abdomen; no change with movement; denies trauma or falls. ? Skin: Denies rash. ? Endocrine: Denies history of diabetes Related Data Previous Rx's ?Medication ?Instructions ?Recorded penicillin V potassium 500 mg 500 mg PO BID 10 days #2 0 tabs 05/19/23 tablet ibuprofen 200 mg capsule (Motrin 600 mg (3 x 200 mg) P O Q4-6H PRN 12/03/23 IB) fever or pain #30 caps oseltamivir 75 mg capsule (Tamiflu) 75 mg PO BID 5 day s #10 caps 12/03/23 acetaminophen 500 mg tablet 500 mg PO Q6H PRN fever or pain 12/05/23 (Tylenol Extra Strength) #30 tabs ibuprofen 400 mg tablet 400 mg PO TID PRN fever or p ain 12/05/23 #30 tabs oxycodone 5 mg tablet 5 mg PO Q6H PRN pain #10 tab s 12/05/23 lidocaine HCl 2 % mucosal solution 5 ml mucous membran e QID PRN pain 07/01/25 (Lidocaine Viscous) #100 mL Allergies Allergy/AdvReac Type Severity Reaction Status Date / Time caramel Allergy Unknown Verified 07/01/25 16:31 carrot Allergy Unknown Verified 07/01/25 16:31 codeine Allergy Unknown Verified 07/01/25 16:31 Review of Systems 2 Review of Systems: Yes all other systems are reviewed and are negative PMFSH Past Medical History Attestation statement: The following information was validated with the patient. Source: old records reviewed and nursing notes reviewed Social History Social History Smoked in Last 30 Days: No Use of substances other than those prescribed or required for medical reasons: Yes Substance Use Type: Marijuana Substance Use Frequency: Occasionally Advance Directives: No Advance Directives Information Provided: Yes Patient : Yes Physical Exam ED Vital Signs: Vital Signs - 24 hr 07/01/25 16:29 07/01/25 17:08 Temperature 98.3 F 98.2 F Pulse Rate 109 H 94 Respiratory Rate 18 20 Blood Pressure 177/90 H 148/98 H Pulse Oximetry 97 97 Oxygen Delivery Method Room Air Room Air BMI result Body Mass Index 32.5 Course Course Course Narrative: This is a rapid medical exam performed by Antoinette Perez NP: Additional HPI, ROS, PE not included below will be deferred to primary provider. Patient is a 40y/o [id number] F presenting to the ED with complaint of sore throat since yesterday. Also found out she was at [facility] 2 weeks ago, unsure LMP. Estimating possibly 7 weeks gestation. Miscarriage October of this year. Complains of lower back pain radiating down R leg and across lower abdomen. Denies vaginal bleeding or other discharge. Plan: strep and viral swabs, labs, u/s Medical Decision Making Medical Decision Making MDM Narrative: 40 year old F patient [id number] with sore throat and lower abdominal/lumbar discomfort; work-up initiated from RME/ triage to confirm intrauterine and evaluate for possible urinary tract infection, strep, COVID and flu. She is not septic or toxic appearing. Upon arrival to ED, she is mildly tachycardic at 109, but normal at 94 now without medical intervention. Initially more hypertensive 177/90 and now 148/98 without intervention. Afebrile, saturating 97 % on RA. . Problem #1: Acute streptococcal pharyngitis Assessment: Positive rapid strep with white pharyngeal exudates and severe odynophagia. DDX: thrush Plan: * Start oral antibiotic therapy effective against Group A Streptococcus, twice daily for 10 days (liquid formulation preferred by patient); first dose administered in ED. * Lidocaine viscous ordered; patient instructed to swish and swallow or spit after allowing medication to coat posterior pharynx for symptomatic relief. * Liquid acetaminophen ordered for additional pain control. * Return precautions: worsening throat pain, inability to handle secretions, fever, or any new concerns. Problem #2: Confirmed , first trimester (gestational age TBD) Assessment: Positive urine test; patient has not yet established care. Plan: * Pelvic ultrasound considered but given no vaginal bleeding and early (5-6 weeks) no concerns for ectopic today, will defer with ER precautions. * [facility] quant: 3075 consistent with 5-6 weeks gestation * Encouraged to establish care with obstetrics/gynecology following ED visit. Problem #3: Rule out urinary tract infection Assessment: Mild suprapubic tenderness; no dysuria, but increases risk. UA ordered. Plan: * Urinalysis and urine culture pending; if positive, antibiotic selection will cover both strep pharyngitis and UTI to avoid dual therapy. * Follow-up results and adjust antibiotics as needed. * UA with trace lueks and 1+ bacteria. Will treat with same abx as treatment for strep. Problem #4: Low back pain radiating to leg Assessment: Lumbar discomfort with radicular features, onset concurrent with current illness; no red-flag symptoms. Plan: * Symptomatic management with acetaminophen as tolerated. * Reassess as care is established; return if pain worsens or new neurologic deficits develop. Follow-up: Patient to follow up with [facility]S TECHNICIAN after ultrasound results; return to ED for any worsening symptoms. Differential Diagnosis Differential Diagnoses: The differential diagnosis associated with the presentation includes Admission/Observation Consideration of admission/observation: Escalation of care including admission/observation considered Patient would have been admitted to the hospital had her work up had any findings where hospital admission was appropriate and her clinical presentation warranted hospital admission. Lab Data MDM Lab Attestation statement: I reviewed the patient's lab results. 07/01/25 16:41 07/01/25 16:41 Labs: Lab Results 07/01/25 07/01/25 Range/Units 16:41 17:11 WBC 9.7 (4.8-10.8) X10*3/uL RBC 4.73 (4.20-5.50) X10*6/uL Hgb 13.2 (12.0-16.0) g/dl Hct 39.3 (37.0-47.0) % MCV 83.1 (80.0-98.0) fL MCH 27.9 (27.0-33.0) pg MCHC 33.6 (31.0-35.0) g/dl RDW 14.5 (11.0-16.0) % Plt Count 354 (160-400) X10*3/uL MPV 9.7 (9.4-12.3) fL Immature Gran % (Auto) 0.2 (0.0-0.4) % Neut % (Auto) 57.2 (45-73) % Lymph % (Auto) 30.2 (20-40) % [place] % (Auto) 10.1 (2-11) % Eos % (Auto) 1.8 (0-4) % Baso % (Auto) 0.5 (0-2) % Lymph # (Auto) 2.9 (1.2-4.9) X10*3/uL [place] # (Auto) 1.0 (0.1-1.2) X10*3/uL Eos # (Auto) 0.2 (0.0-0.4) X10*3/uL Baso # (Auto) 0.1 (0.0-0.2) X10*3/uL Abs Immat Gran (auto) 0.02 (0.00-0.03) X10*3/uL Absolute Neuts (auto) 5.5 (2.0-8.3) x10*3/uL Absolute Nucleated RBC 0.000 (0.0-0.012) X10*3/uL Nucleated RBC % (auto) 0.0 (0.0-0.2) /100WBC Sodium 140 (135-145) mmol/L Potassium 4.1 (3.3-5.1) mmol/L Chloride 109 H (96-108) mmol/L Carbon Dioxide 22 (22-29) mmol/L Anion Gap 13 (12-20) BUN 11 (9-16) mg/dL Creatinine 0.62 (0.5-1.4) mg/dL Estim Creat Clear Calc 149.7 Estimated GFR > 60 Random Glucose 97 (60-115) mg/dL Calcium 9.5 (8.4-10.2) mg/dL Total Bilirubin 1.0 (0.0-1.0) mg/dL AST 56 H (5-31) U/L ALT 66 H (0-31) U/L Alkaline Phosphatase 66 (39-117) U/L Total Protein 7.7 (6.5-8.0) g/dL Albumin 4.3 (3.5-5.0) g/dL Beta HCG, Quant 3075 mIU/mL Urine Color Yellow Urine Appearance Clear Urine pH 5.5 (5.0-9.0) Ur Specific [place] 1.015 (1.005-1.025) Urine Protein Negative (Neg-Trace) mg/dL Urine Glucose (UA) Negative (Negative) mg/dL Urine Ketones Negative (Negative) mg/dL Urine Blood Negative (Negative) Urine Nitrite Negative (Negative) Ur Leukocyte Esterase Trace H (Negative) Urine RBC 0-2 (0-2) /HPF Urine WBC 0-5 (0-5) /HPF Ur Squamous Epith Cells 6-10 (0-2) /HPF Urine Bacteria 1+ (None Seen) Hyaline Casts 0-2 (0-2) /LPF Influenza Type A (PCR) NEGATIVE (Negative) Influenza Type B (PCR) NEGATIVE (Negative) RSV RNA Qual (PCR) NEGATIVE (Negative) SARS-CoV-2 RNA (RT-PCR) NEGATIVE (Negative) S. pyogenes GrpA PAOLO Positive A (Negative) Tests considered The following testing was considered but not selected: See MDM Prescription Management I considered prescription management with: Antibiotic Chronic Conditions Patient?s care impacted by: Other Social Determinants Patient?s care significantly limited by Social Determinants of Health including: Other Social Determinant of Health Discharge Plan Discharge Clinical Impression: Acute streptococcal pharyngitis UTI (urinary tract infection) during Qualifiers: Trimester: first trimester Qualified Code(s): O23.41 - Unspecified infection of urinary tract in , first trimester Patient Disposition: Home, Self-Care Instructions: Strep Throat (ED), Urinary Tract Infection in (ED) Additional Instructions: Date of Service: 2025-07-01 Diagnosis: - Acute streptococcal pharyngitis - Early intrauterine - UTI Hospital Course and Results: - Patient presented with severe sore throat, odynophagia, and inability to tolerate oral intake. - Rapid strep test was positive. - Urinalysis showed WBCs and bacteria, consistent with UTI. - Urine hCG positive, confirming . - No fever, dysuria, or vaginal bleeding. - Physical exam: white pharyngeal exudates, mild suprapubic and lumbar tenderness, no neurologic deficits. - No evidence of ectopic or miscarriage; ultrasound deferred as no bleeding or concerning symptoms. Treatment Plan: - Antibiotic therapy: Cephalexin (Keflex) 500 mg by mouth twice daily for 10 days (liquid formulation), first dose administered in ED. This regimen is appropriate for both group A streptococcal pharyngitis and uncomplicated UTI in , and is considered safe in the first trimester. - Symptomatic management: Liquid acetaminophen for pain/fever as needed. - Hydration: Encourage oral fluids as tolerated. - Activity: Rest as needed; avoid strenuous activity until symptoms improve. Follow-Up Instructions: - Obstetric care: Establish care with [facility]S TECHNICIAN as soon as possible. - Antibiotic adherence: Complete the full 10-day course of cephalexin, even if symptoms improve early. - Monitor for complications: - For strep throat: return if unable to tolerate oral intake, develop fever, neck swelling, or difficulty breathing. - For UTI: return if fever, flank pain, vomiting, or signs of pyelonephritis develop. - For : return for any vaginal bleeding, severe abdominal pain, or new concerning symptoms. - For back pain: return if pain worsens, new weakness, numbness, or loss of bladder/bowel control. Return Precautions: - Worsening throat pain, inability to swallow, persistent vomiting, high fever, new or worsening abdominal or back pain, vaginal bleeding, or any new neurological symptoms. Summary: You are stable for discharge with close outpatient follow-up. Cephalexin is an appropriate and safe choice for both infections in early , and liquid formulation is available for patient preference. No immediate obstetric or neurologic concerns identified at this time. Prescriptions: New lidocaine HCl [Lidocaine Viscous] 2 % solution 5 ml mucous membrane QID PRN (Reason: pain) Qty: 100 0RF Rx Instructions: swish and swallow No Action oseltamivir [Tamiflu] 75 mg capsule 75 mg PO BID 5 Days Qty: 10 0RF ibuprofen [Motrin IB] 200 mg capsule 600 mg PO Q4-6H PRN (Reason: fever or pain) Qty: 30 0RF penicillin V potassium 500 mg tablet 500 mg PO BID 10 Days Qty: 20 0RF acetaminophen [Tylenol Extra Strength] 500 mg tablet 500 mg PO Q6H PRN (Reason: fever or pain) Qty: 30 0RF ibuprofen 400 mg tablet 400 mg PO TID PRN (Reason: fever or pain) Qty: 30 0RF oxycodone 5 mg tablet 5 mg PO Q6H PRN (Reason: pain) Qty: 10 0RF Rx Instructions: Patient may request partial refill; Partial Fill upon patient request. [place] [facility] [place] [facility] [place] Clinical Impression: UTI (urinary tract infection) during Print Language: Yi
[2025-07-01 16:29] VITALS: BP 177/90; PULSE 109; RESP 18; TEMP 36.8; O2SAT 97; BMI 32.5
[2025-07-01 16:46] LABS: MANUAL DIFF FLAG NO
[2025-07-01 16:53] LABS: Hematocrit 39.3 % (37.0-47.0); Hemoglobin 13.2 g/dl (12.0-16.0); Imm Gran Abs Auto 0.02 X10*3/uL (0.00-0.03); Imm Gran Pct Auto 0.2 % (0.0-0.4); Lymphocytes Absolute Auto 2.9 X10*3/uL (1.2-4.9); Mean Corpuscular HGB Conc 33.6 g/dl (31.0-35.0); Mean Corpuscular Hemoglobin 27.9 pg (27.0-33.0); Mean Corpuscular Volume 83.1 fL (80.0-98.0); NRBC Abs Auto 0.000 X10*3/uL (0.0-0.012); NRBC Pct Auto 0.0 /100WBC (0.0-0.2); Platelet Count 354 X10*3/uL (160-400); Red Blood Count 4.73 X10*6/uL (4.20-5.50); White Blood Count 9.7 X10*3/uL (4.8-10.8)
[2025-07-01 17:08] VITALS: BP 148/98; PULSE 94; RESP 20; TEMP 36.8; O2SAT 97
[2025-07-01 17:08] LABS: Alanine Aminotransferase 66 U/L (0-31); Albumin Level 4.3 g/dL (3.5-5.0); Alkaline Phosphatase 66 U/L (39-117); Anion Gap 13 (12-20); Aspartate Amino Transferase 56 U/L (5-31); Blood Urea Nitrogen 11 mg/dL (9-16); Calcium 9.5 mg/dL (8.4-10.2); Carbon Dioxide 22 mmol/L (22-29); Chloride 109 mmol/L (96-108); Creatinine Clr Calc Pharmacy 149.7; Estimated Glomerular Filt Rate > 60; Potassium 4.1 mmol/L (3.3-5.1); Sodium 140 mmol/L (135-145); Total Protein 7.7 g/dL (6.5-8.0)
[2025-07-01 17:12] LABS: IDNOW Serial# 08D9AD1C; Strep A Nucleic Acid Positive (Negative)
[2025-07-01 17:22] LABS: Appearance Urine Clear; Glucose Urine UA Negative (Negative); PH 5.5 (5.0-9.0); Specific Gravity - Urine 1.015 (1.005-1.025); UMIC TRIGGER UACC YES
[2025-07-01 17:25] LABS: Resp Syncy Virus RNA Qual PCR NEGATIVE (Negative); SARS COV2 PCR INHOUSE NEGATIVE (Negative)
--- NOTE | 2025-07-01 18:25 | PC.NURSE ---
Patient wanted to leave ED This RN explained that the provider had to switch her ABT Patient became verbally aggressive stating she wanted her discharge paperwork Patient was told that she can have her pain medication but she would have to wait for her ABT Patient stated im leaving valentin been waiting for 30 minutes Patient signed discharge paperwork and then ripped it in half and handed it to this RN. Patient left without receiving her medications
== END 2025-07-01 18:31 | disposition home or self-care (01) ==
PROVIDERS: Registered Nurse Emergency; Emergency Provider Emergency Medicine
DX: O23.41 Unspecified infection of urinary tract in pregnancy, first trimester (principal); O98.811 Other maternal infectious and parasitic diseases complicating pregnancy, first trimester; B95.0 Streptococcus, group A, as the cause of diseases classified elsewhere; J02.9 Acute pharyngitis, unspecified; Z03.818 Encounter for observation for suspected exposure to other biological agents ruled out
CPT/HCPCS: 80053; 81001; 84702; 85025; 87637; 87651; 99284